=== PATIENT | female | born 1990 | race Caucasian/White ===

== ENCOUNTER 2017-01-06 16:10 | Outpatient (CLI) | payer OTHER | END 2017-01-06 16:11 | disposition home or self-care (01) | DX: R10.2 Pelvic and perineal pain (principal) ==

== ENCOUNTER 2017-01-15 08:00 | Outpatient (CLI) | payer OTHER | END 2017-01-15 08:01 | disposition home or self-care (01) | DX: Z11.3 Encounter for screening for infections with a predominantly sexual mode of transmission (principal) ==

== ENCOUNTER 2017-01-20 13:00 | Outpatient (CLI) | payer OTHER ==
[2017-01-20] MEDS ORDERED: IOPAMIDOL-300 50 ML VIAL PO ONE (14:41)
[2017-01-20] MEDS ORDERED: IOPAMIDOL-300 100 ML VIAL IVP ONE (14:49)
== END 2017-01-20 13:01 | disposition home or self-care (01) ==
DX: R10.12 Left upper quadrant pain (principal)
CPT/HCPCS: 74177; Q9967